=== PATIENT | female | born 1980 | race African-American/Black ===

== ENCOUNTER 2025-04-06 09:58 | Outpatient (AMB) | payer OTHER, SELFPAY ==
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
--- OUTSIDE RECORDS SUMMARY | 2025-04-06 10:26 | XMS_ITS | Data Portability ---
Author Organization [facility], Main Office Address [address] [facility] [address] [place] [address] Assessment No assessment recorded. Plan of Treatment Reminders Order Date Submit Date Provider Last Modified By Organization Details Last Modified Time Details Appointments None record ed. Lab None record ed. Referral None record ed. Procedures None record ed. Surgeries None record ed. Imaging None record ed. Medication Orders None record ed. Patient TargetsNo targets recorded. Patient InstructionsNo instructions recorded. Reason for Referral None Reported. Results Created Date Observation Date Name Description Value Unit Range Abnormal Flag Note LastModifiedBy Organization Detail LastModifiedTime 09/03/2001/13/2018 MRI, knee, w/o contr ast No observ ation record ed. [facility] [address] [facility] [address], [place], [id number], 09/04/2023 10:16:02 Result Notes None recorded. Medical Equipment None Reported. Vitals None Recorded Social History None recorded. Functional Status None recorded. Mental Status None recorded. Family History Nothing Reported. Medical History No medical history recorded. Gynecological HistoryNo gynecological history recorded. Obstetrics History GPAL:G 0 P 0 0 0 0 Past Encounters Encounter ID Performer Location Encounter Start Date Encounter Closed Date Diagnosis/Indication Diagnosis SNOMED-CT Code Diagnosis ICD10 Code Diagnosis Note [id number] Phyllis Lara MD [address],[facility] [address] [place] [phone] 09/03/2023 13:56:26 09/03/2023 15:02:34 Pain of bilateral knee joints [id number] 60714 M25.561 M25.562 [facility]Ur ine drug testing is ordered to assess compliance with prescribed medication s and identify common prescribed and non-prescr ibed substances that can impact medication efficacy and safety. Presumptiv e urine drug test including amphetamin es, barbiturat es, benzodiaze pines, cocaine, MDMA, methamphet amine, methadone, opiates, oxycodone, PCP and THC. Confirm by definitive testing all positive and negative results that are inconsiste nt with the prescribed medication s and all classes for which a presumptiv e test does not adequately identify low concentrat ions or the drugs within the class or their metabolite s specifical ly opiates, oxycodone, benzodiaze pines, amphetamin es, TCAs, methamphet amine, barbiturat es, BCG, 6-VAISHNAVI, methadone, and THC. Based on assessment , patient is at elevated risk due to dosage required to achieve pain control, medication combinatio ns, medical and/or psychiatri c comorbidit ies, and/or behaviors that may indicate aberrancy. Definitive urine drug test for gabapentin , pregabalin , SSRIs, Fentanyl, Tramadol, Zolpidem, muscle relaxants, buprenorph ine, tapentadol , meperidine , naloxone, and alcohol which are not detected by presumptiv e urine drug testing. These results are necessary for proper treatment of the patient. 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 [facility] Concerns Section Related Observation LastModified by Organization Detai ls LastModified Time None Recorded Concern Status LastModified by Organization Details LastModified Time None Recorded Advance Directives Directive None Recorded Payers Insurance Date Sequence Insurance Name Policy Number Policy Charles Covered Member ID Charles Member ID Guarantor Name 09/04/2023 1 [employer] (MEDICARE REPLACEMENT/ ADVANTAGE - HMO) [id number] Araceli Christopher [id number] Araceli Christopher 08/25/2023 1 [employer] (MEDICARE REPLACEMENT/ ADVANTAGE - PPO) [id number] Araceli Christopher [id number] Araceli Christopher Notes Date Note Type Note Provider Name and Address Organization Details Recorded Time 09/03/2023 text/html Appointment Date : September 03, 2023 This is a 43 year old Female with a history of pain, and swelling, numbness and tingling in the area of the knees. This pain began several years ago, and with no known cause, and they rate it at 8/10 on the Numerical Rating Scale today. The patient describes their pain as burning, aching, sharp and stabbing, it is worsened by lifting, walking, sitting, running and using the affected area, and alleviated by medications. In the past they have used medications which include we've tried everything but for the last maybe 8 yrs i've been on the same dose of meds. Previous related surgeries or procedures include bilateral release , screws put in , bone moved for better tracking, recent surgery 05/2023. Previous therapies include acupuncture, physical therapy and chiropractic therapy. The patient has done at least 6 weeks of physical therapy in the last 6 months including home exercise therapy. The patient denies allergies to IV Contrast or Shellfish. The patient denies a history of rapid weight loss for no reason. The patient reports a history of a broken bone or surgery in the area of pain. The patient denies that the area of pain is hot and swollen or cold and weak. The patient reports currently seeing, or having been seen in the past by a pain management doctor. In their own words, the patient reports that the name of their previous pain management doctor is: Dr engel, Dr ray. HX of chronic B knee pain, mainly on medial and lateral sides. Has undergone several surgeries on her R knee. Unclear what kind exactly, as well as genicular RFA. To date nothing has helped. She is on MS contin 15 mg tid and Percocet 15 mg qid ie MME around 135. She was previously seen by Dr. Ray and Dr. Engel. Was discharged from [facility] for arguing with desktop architect. Phyllis Lara MD [address] [facility],[address], [place], [address], - [facility] 09/03/2023 15:10:42 OBGyn Episode No OBEpisode recorded.
[2025-04-06 10:32] VITALS: BP 90/60; PULSE 76; RESP 12; TEMP 36.6; O2SAT 100; BMI 22.4
== END 2025-04-06 10:58 | disposition home or self-care (01) ==
LOC: HO.HMCFM 09:59
PROVIDERS: PCP Family Medicine; Visit Provider Family Medicine
DX: F41.9 Anxiety disorder, unspecified (principal); F32.A Depression, unspecified; F43.10 Post-traumatic stress disorder, unspecified; F31.9 Bipolar disorder, unspecified; Z86.39 Personal history of other endocrine, nutritional and metabolic disease; Z00.00 Encounter for general adult medical examination without abnormal findings; M25.569 Pain in unspecified knee; F42.9 Obsessive-compulsive disorder, unspecified

== ENCOUNTER → 2025-04-06 09:58 | Outpatient (BNVA) | payer OTHER, SELFPAY | PROVIDERS: PCP Family Medicine; Visit Provider Family Medicine | DX: Z00.00 Encounter for general adult medical examination without abnormal findings (principal); F41.9 Anxiety disorder, unspecified; F43.10 Post-traumatic stress disorder, unspecified; F31.9 Bipolar disorder, unspecified; F42.9 Obsessive-compulsive disorder, unspecified; Z86.39 Personal history of other endocrine, nutritional and metabolic disease | CPT/HCPCS: 96127 ==

== ENCOUNTER 2025-04-06 11:31 | Outpatient (REF) | payer MEDICARE, SELFPAY ==
[2025-04-06 14:38] LABS: Appearance Urine Clear; Glucose Urine UA Negative (Negative); PH 5.5 (5.0-9.0); Specific Gravity - Urine >= 1.030 (1.005-1.025); UMIC TRIGGER UACC YES
[2025-04-06 14:48] LABS: Cannabinoid Screen Urine POSITIVE (Not Detect)
[2025-04-06 14:50] LABS: MANUAL DIFF FLAG NO
[2025-04-06 15:02] LABS: Hematocrit 39.9 % (37.0-47.0); Hemoglobin 12.7 g/dl (12.0-16.0); Imm Gran Abs Auto 0.02 X10*3/uL (0.00-0.03); Imm Gran Pct Auto 0.3 % (0.0-0.4); Lymphocytes Absolute Auto 1.8 X10*3/uL (1.2-4.9); Mean Corpuscular HGB Conc 31.8 g/dl (31.0-35.0); Mean Corpuscular Hemoglobin 29.3 pg (27.0-33.0); Mean Corpuscular Volume 91.9 fL (80.0-98.0); NRBC Abs Auto 0.000 X10*3/uL (0.0-0.012); NRBC Pct Auto 0.0 /100WBC (0.0-0.2); Platelet Count 226 X10*3/uL (160-400); Red Blood Count 4.34 X10*6/uL (4.20-5.50); White Blood Count 7.4 X10*3/uL (4.8-10.8)
[2025-04-06 15:04] LABS: Hemoglobin A1C 107.4191 umol/L; Total Hemoglobin (HGBA1C) 3344.8279 umol/L
[2025-04-06 15:23] LABS: Alanine Aminotransferase 11 U/L (0-31); Albumin Level 4.3 g/dL (3.5-5.0); Alkaline Phosphatase 50 U/L (39-117); Anion Gap 13 (12-20); Aspartate Amino Transferase 16 U/L (5-31); Blood Urea Nitrogen 13 mg/dL (9-16); Calcium 8.9 mg/dL (8.4-10.2); Carbon Dioxide 27 mmol/L (22-29); Chloride 107 mmol/L (96-108); Cholesterol 185 mg/dL (<200); Estimated Glomerular Filt Rate > 60; HDL Cholesterol 56 mg/dL (>40); Potassium 3.5 mmol/L (3.3-5.1); Sodium 143 mmol/L (135-145); Total Protein 6.7 g/dL (6.5-8.0); Triglycerides 69 mg/dL (<150)
[2025-04-06 15:32] LABS: Microalbum/Creatinine Ratio Ur 4.4 ug/mg cr (<30)
[2025-04-06 15:43] LABS: Folate 6.5 ng/mL (> or = 4.0); Vitamin B12 307 pg/mL (200-900)
== END 2025-04-06 11:32 | disposition home or self-care (01) ==
LOC: HO.WFDLDS 11:31
PROVIDERS: Visit Provider Family Medicine
DX: I10 Essential (primary) hypertension (principal); Z00.00 Encounter for general adult medical examination without abnormal findings; F31.9 Bipolar disorder, unspecified; R73.01 Impaired fasting glucose; M25.569 Pain in unspecified knee; E53.8 Deficiency of other specified B group vitamins; E55.9 Vitamin D deficiency, unspecified
CPT/HCPCS: 80053; 80061; 80307; 81001; 82043; 82306; 82570; 82607; 82746; 83036; 84443; 85025

== ENCOUNTER 2025-05-13 13:40 | Outpatient (AMB) | payer OTHER, SELFPAY ==
--- OUTSIDE RECORDS SUMMARY | 2020-02-16 11:35 | XMS_ITS | Continuity of Care Document ---
Author Organization [facility] Address [address] [facility] [address] [facility], [address] [place] [address] Phone Care Team Providers Care Spud Sorter Name Role Phone Dhruv Meehan MD Unavailable Unavailable Allergies, Adverse Reactions, Alerts Substance Reaction Status Criticality No Known Allergies Active No Inform ation No Known Drug Allergies (unknown) Active No I nformation Medications Medication Instructions Dosage Effective Dates (start - stop) Status Comments Macrobid 100 mg capsule take 1 capsule by oral route every 12 hours with food 100 MG - Active Diflucan 150 mg tablet TAKE ONE ON DAY 5 OF AMPICILLIN RX AND THEN REPEAT IN 72 HRS IF SXS PERSIST - Active clindamycin HCl 300 mg capsule take one twice a day x 7 days - Active Cleocin 2 % vaginal cream insert 1 applicatorful by vaginal route every day at bedtime 100 MG - Active ampicillin 500 mg capsule TAKE ONE 3 TIMES A DAY FOR 7 SEVEN - Active Valtrex 500 mg tablet take 1 tablet by o ral route every day 500 MG - Active Cleocin 100 mg vaginal suppository insert 1 suppository by vaginal route every day for 3 days at bedtime 100 MG - Active nystatin 100,000 unit/gram topical cream apply by topical route 2 times every day to the affected area(s) 0.00 - Active triamcinolone acetonide 0.1 % topical cream apply by topical route 2 times every day a thin layer to the affected area(s) 0.00 - Active nystatin-triamcinolone 100,000 unit/g-0.1 % topical cream apply by topical route 2 times every day to the affected area(s) in the morning and evening 0.00 - Active tolterodine ER 4 mg capsule,extended release 24 hr take 1 capsule by oral route every day 4 MG - Active Mirena 20 mcg/24 hr (5 years) intrauterine device place 1 IUD by VAGINAL route every N/A 1 IUD - Active Procedures Procedure Date Ultrasound Pelvis Complete OFFICE/OUTPATIENT VISIT, EST OFFICE/OUTPATIENT VISIT, EST OFFICE/OUTPATIENT VISIT, EST OFFICE/OUTPATIENT VISIT, EST OFFICE/OUTPATIENT VISIT, EST OFFICE/OUTPATIENT VISIT, EST PREV VISIT, EST, AGE 18-39 Advance Directives Directive Yes / No Effective Date File Name No Information Encounters Encounter Description Practice Location Reason(s) For Visit Diagnoses Date Provider [facility], [facility] [address], [address] [place], [id number], [place] tel:[phone] [facility] No Information 0 Zoran Bartlett. [address] [place] [address], Adan Barba MD, [id number] , [place]. tel: [phone] [facility], [facility] [address], [address] [place], [id number], [place] tel:[phone] 64 [facility] No Information 0 Zoran Bartlett. [address] [place], [place] [address]Mark [place], [place], [id number] , [place]. tel: [phone] [facility], [address], [address] [place], [id number], [place] tel:[phone] 64 [facility] No Information 0 Zoran Bartlett. [address] [place] [address], Adan Barba MD, [id number] , [place]. tel: [phone] [facility], [address], [address], [place], [id number], [place] tel:[phone] 64 [place] No Information 9 Meehan Dhruv. [address] [place] [address], [address], Adan Davalos MD, [id number] , [place]. tel: [phone] OFFICE/OUTPAT IENT VISIT, EST [facility], [address], [address], [place], [id number], [place] tel:[phone] 64 [place] Partner feels IUD string (chief complaint)S potting (chief complaint) IUD check upIntermenstrual spotting due to intrauterine device (IUD), initial encounterOvulation bleeding 9 Zoran Bartlett. [address] [place] [address], [address], Adan Davalos MD, [id number] , [place]. tel: [phone] [facility], [address], [address], [place], [id number], [place] tel:[phone] 64 Adan Daval[place] No Information Eris Magdaleno. [address] [facility], [address], Adan Dav[place]os [place], [id number] , [place]. tel: [phone] [facility], [address], [address], [place], [id number], [place] tel:[phone] 64 Adan Daval[place] No Information 9 Eris Magdaleno. [address] [facility], [address], Adan Davalos MD, [id number] , [place]. tel: [phone] OFFICE/OUTPAT IENT VISIT, EST [facility], [address], [address], [place], [id number], [place] tel:[phone] 64 [place] vaginal irritation (chief complaint)* vaginal discharge (chief complaint) VaginitisEncntr for director child development center exam (general) (routine) w/o abn findings 9 Brianna Barakat. [address] [facility], [address], Adan Davalos MD, [id number] , [place]. tel: [phone] OFFICE/OUTPAT IENT VISIT, [facility], [address] [place], [address], [place], [id number], [place] tel:[phone] 64 [place] *vaginal discharge (chief complaint) Vaginitis 9 [place]. [address] [facility], [address], Adan Davalos MD, [id number] , [place]. tel: [phone] OFFICE/OUTPAT IENT VISIT, [facility], [address], [place], [id number], [place] tel:[phone] 64 Adan Davalos *UTI (chief complaint) Urinary urgencyVaginal discharge 8 [place]. [address] [place] [address], [address], Adan Davalos MD, [id number] , [place]. tel: [phone] OFFICE/OUTPAT IENT VISIT, [facility], [address], [address], [place], [id number], [place] tel:[phone] 64 Adan Davalos *UTI (chief complaint) Urinary urgency 8 [place]. [address] [facility], [address], Adan Davalos MD, [id number] , [place]. tel: [phone] OFFICE/OUTPAT IENT VISIT, [facility], [address], [address], [place], [id number], [place] tel:[phone] 64 Adan Davalos Pt. c/o white discharge (chief complaint) Vaginitis 8 Dottie Bull. [address] [place] [address], [address], Adan Davalos MD, [id number] , [place]. tel: [phone] PREV VISIT, [facility], AGE 18-39 [facility], [address], [address], [place], [id number], [place] tel:[phone] 64 Adan Davalos Annual Exam (chief complaint)* STI Screening (chief complaint)* vaginal discharge (chief complaint)v aginal odor (chief complaint) Encntr for director child development center exam (general) (routine) w/o abn findingsVaginitisEncounter for routine checking of intrauterine contraceptive device (IUD)Screening for STD (sexually transmitted disease) 7 [place]. [address] [facility], [address], Adan Davalos MD, [id number] , [place]. tel: [phone] [facility], [address], [address], [place], [id number], [place] tel:[phone] 64 [facility] No Information 7 [place]. [address] [facility], [address], Adan Davalos MD, [id number] , [place]. tel: [phone] [facility], [address], [address], [place], [id number], [place] tel:[phone] 64 [facility] No Information 1 Eris Magdaleno. [address] [facility], [address], Adan Davalos MD, [id number] , [place]. tel: [phone] Family History Family Member Type Diagnosis Age At Onset close relative Problem (finding) Diabetes mellitus close relative Problem (finding) hypertension Payers Payer name Insurance type Covered constitution party ID Authoriza tion(s) Medicare [place] MB [id number] Social History Type Description Quantity Date Captured Comments Sex Female Smoking Status No Information Chief Complaint And Reason For Visit No Information Plan Of Treatment Date Type Action Status Referral Ordered: Ultrasound Pelvis Complete ordered History Of Present Illness Encounter Date Complaint History Of Prese nt Illness Spotting Partner feels IUD string 39 yo F LMP 2016 with Mirena ...Partner c/o string 2 days ago....+ spotting... *vaginal discharge vaginal irritation Pt c/o vagina l d/c and irritation for past week.Pt denies vaginal bleedingPt recently treated with flagyl PO *vaginal discharge Onset: gradua l. Duration 4 Days. The patient describes it as creamy white discharge. It occurs continuously. Denies aggravating factors. Denies relieving factors. Associated symptoms include itching. Pertinent negatives include bleeding, burning, dyspareunia and vulvar dystrophy. Additional information: She notes a creamy white d/c, with slight odor and mild itch x 4 days. She has not tried anything for treatment yet. *UTI Onset: gradual. Severity level is moderate-severe. Duration: 1 Week. There is radiation to back and urgency. The patient describes it as frequency. It occurs constantly. The problem is with no change. Relieving factors include analgesics. Additional information: no history of interstitial cystitis, no history of irritable bowel, no history of pyelonephritis, no history of stones, history of UTIs, sexually active and LMP: 10/06/2015. *UTI Onset: gradual. Severity level is moderate. Duration: 1-3 months. The patient describes it as incontinence (urge) and urgency. It occurs intermittently. The problem is worse. Denies aggravating factors. Relieving factors include Azo otc. Additional information: no history of interstitial cystitis, no history of irritable bowel, no history of pyelonephritis, no history of stones, history of UTIs, sexually active, LMP: 10/06/2015, She has a hx of urge incontinence, she stopped her meds 1.5 mo ago as she thought stopping would help her lose wt. She then developed intermit. urgency and frequency and w/o dysuria. She self tx w/ otc.. Pt. c/o white discharge The symp toms began 2 days ago. The symptoms are reported as being mild. The location is vagina. Associated symptoms include odor. Pertinent negatives include itch. She states the symptoms are acute and have improved. She notes the discharge started 2-3 days ago, was worse, then improved. She notes a mild odor, but no itching. Annual Exam : 1. Wilda ty: : 1. Patient is not contemplating . The patient states she uses IUD, Mirena for control. Last LMP was 08/27/2017. Negative for dysmenorrhea and menorrhagia. Negative for: breast discharge, breast lump(s) and breast pain. Positive for: breast self exam. Pertinent negatives include abnormal vaginal bleeding, decreased libido, depression, dyspareunia, sexual dysfunction, urinary incontinence, urinary urgency, vaginal discharge and vaginal itching. She does not take calcium. She does not take Vitamin D. She does not take multivitamins.The patient states her exercise level is sedentary. She has not been exposed to passive smoke. She does not drink alcohol. Additional information: She complains of years of vaginal odor and slight discharge. She has tried probiotics with minimal relief. She requests STD testing.. *STI Screening *vaginal discharge vaginal odor Instructions Date Instruction Additional Infor mation We discussed urge in continence. She will try the generic Detrol LA. Related to Urinary urgency She will try Rephres h gel, while we await culture results. Related to Vaginitis We discussed trying Rephresh gel for the odor. Related to Vaginitis Assessments Type Assessment Date No Information
--- NOTE | 2025-05-13 13:43 | MHC.PC.OV ---
Vital Signs 05/13/25 13:46 Height 5 ft 8 in Weight 157 lb BMI 23.9 BP 115/64 Blood Pressure Location Lt brachial Position Sitting Respiration 12 Pulse 76 Pulse Source Pulse Oximeter Temp 97.3 F Temp Source Temporal Artery Scan Pulse Oximetry (%) 100 Oxygen Delivery Method Room Air Intake Visit Reasons: F/U medication / Labs Intake Note: Follow up to review labs. Patient also reuqesting referrals Prenatal Genetic Counselor Required: No Allergies methadone Allergy (Intermediate, Verified 05/13/25 13:44) Vomiting Medication List - Last Reconciled 05/13/25 by Juan Luis Marte MD alprazolam (Xanax) 1 mg PO ONCE PRN buspirone 15 mg PO TID cariprazine (Vraylar) 3 mg PO DAILY levonorgestrel (Mirena) intrauterine meloxicam 15 mg PO DAILY 30 days morphine 15 mg PO TID PRN oxycodone 15 mg PO QID PRN semaglutide (Ozempic) 0.25 mg (0.368 mL) subcut QWEEK 28 days sumatriptan succinate 50 mg PO Q2-4H PRN valacyclovir 1,000 mg PO DAILY Tobacco use date assessed: 05/13/25 Dental Screening Dental Screen Date: 05/13/25 Did you have a dental visit in the last 12 months?: Yes Did you have a dental problem in the last 6 months where you did not have access to dental care?: No Was dental information given to patient?: Patient has dentist HPI F/U medication / Labs HPI Details 45 y/o female presents for a CPE with f/u labs and health maint. Labs drawn 04/06/25. Reviewed labs with pt. Triglcyerides 69. TC 185. LDL 116. HDL 56. Vitamin D 38.1 ng/mL. Hx of chroinc knee pain. Had sent script for meloxicam and referred her to pain management. Has been using ice/heat as well for relief. She notes it has been awhile since her last physical therapy session. [facility] Medical History (Updated 05/13/25 @ 14:16 by Duarte Lorenz) PTSD (post-traumatic stress disorder) OCD (obsessive compulsive disorder) Bipolar 1 disorder Anxiety and depression Herpes genitalis in women Edema Arthritis Surgical History (Updated 04/06/25 @ 10:29 by UZMA Robbins) H/O right knee surgery Cholecystotomy with removal of foreign body from gallbladder performed Family History (Updated 04/06/25 @ 10:28 by UZMA Robbins) Brother Asthma Father High blood pressure High cholesterol Diabetes Mother Diabetes Psychiatric disorder Social History Housing: Apartment Patient Tobacco Use Status: Never used Tobacco e-Cigarette/Vaping Use: Never Used Second Hand Smoke Exposure: No Current occupational status: employed Cognitive needs: No Hearing needs: No Vision needs: No Questionnaire Thrive Questionnaire Date Thrive assessed: 04/06/25 I am a: Patient What is your living situation today?: I have a steady place to live Within the past 12 months, did the food you bought not last and you didn't have the money to get more?: Sometimes True Within the past 12 months, did you worry whether your food would run out before you got money to buy more?: Sometimes True Do you have trouble paying for medicines?: No Do you have trouble getting transportation to medical appointments?: No Do you have trouble paying your heating and electricity bill?: No Do you have trouble taking care of your child, family member or friend?: No Do you have trouble with day-to-day activities such as bathing, preparing meals, shopping, managing finances, etc.?: Yes Are you currently unemployed and looking for a job?: I choose not to answer this question Are you interested in more education?: No THRIVE Score: 2 AUDIT C Alcohol Use Questionnaire (AUDIT-C) 3. How often do you have six or more drinks on one occasion?: Never Total Score: 0 AGUSTIN-7 AMB Questionnaire AGUSTIN-7 Date AGUSTIN - 7 assessed: 04/06/25 Source: Developed by Drs. Nico Nichols, Jewels Chaparro, Gibran Poon and colleagues, with an educational subha from [employer]. Review of Systems Const Denies chills, Denies fatigue, Denies fever(s), Denies headache(s) and Denies weakness Eyes Denies change in vision ENT Denies dizziness and Denies headache(s) Card Denies dyspnea Resp Denies cough, Denies dyspnea, Denies wheezing and Denies other (shortness of breath) GI Denies abdominal pain, Denies melena, Denies hematochezia, Denies change in bowel habits, Denies dyspepsia and Denies nausea Denies hematuria and Denies dysuria Musc Denies numbness and Denies tingling Skin/Breast Denies rash, Denies unusual bruising and Denies wounds Neuro Denies dizziness, Denies headache(s), Denies numbness, Denies Sensory deficit (Neuro), Denies tingling and Denies weakness Psych Denies anxiety and Denies depression Endo Denies fatigue Ronald/Lymph Denies easy bleeding and Denies easy bruising Aller/Immun Denies wheezing Physical exam (Primary Care) Vital Signs: Last Vital Signs Temp 97.3 F 05/13/25 13:46 Pulse 76 05/13/25 13:46 Resp 12 05/13/25 13:46 BP 115/64 05/13/25 13:46 Pulse Ox 100 05/13/25 13:46 Oxygen Delivery Method Room Air 05/13/25 13:46 BMI result Body Mass Index 23.9 Tobacco/Smoking Status: Tobacco use Status Tobacco use date assessed 05/13/25 05/13/25 13:45 Patient Tobacco Use Status Never used Tobacco 05/13/25 13:45 e-Cigarette/Vaping Use Never Used 05/13/25 13:45 Thrive Assessment: Date of Thrive Assessment Date Thrive assessed 04/06/25 05/13/25 13:45 Const General: well developed; No acute distress Nutritional Appearance: well nourished Orientation/consciousness: patient oriented x3 HENMT Head: Yes normocephalic and Yes atraumatic Ears: hearing grossly normal bilaterally and TM's normal bilaterally General nose exam: Normal external nose present and Normal nares present Mouth: Normal oral and palatal mucosa present and moist mucous membranes Teeth and gingiva: dentition normal Throat: Yes posterior oropharynx normal Eyes General: appearance normal, both eyes and all related structures Pupils: Equal, round and reactive pupils present EOM: EOMs intact bilaterally Neck Neck: Yes normal visual inspection, Yes no lymphadenopathy and Yes trachea midline Thyroid: Thyroid normal Carotids: no bruits Lymphatic: no lymphadenopathy noted Chest Chest palpation & inspection: normal inspection of the chest Resp Effort & Inspection: normal respiratory effort Auscultation: clear to auscultation bilaterally Cardio Rate: regular rate Rhythm: regular rhythm Heart sounds: S1 normal heart sound present, S2 normal heart sound present, no gallops, no murmurs and no rubs Bruits: no abdominal aortic bruits and no carotid bruits GI Palpation (GI): No Abdominal aortic bruit present, Soft to palpation, nontender, No hepatosplenomegaly present and No Rebound tenderness present Auscultation: normal bowel sounds General: Yes no CVA tenderness Back/Spine/Pelvis Back: no CVA tenderness Cervical Spine: cervical ROM normal and No Cervical spine tenderness Thoracic/Lumbar Spine: thoraco-lumbar ROM normal, No pain with thoraco-lumbar ROM, No thoracic spinal tenderness and No lumbar spinal tenderness Skin Lesions: no lesions Rashes: no rashes Trauma: no lacerations or abrasions Wounds: no wounds Nails: normal Neuro General: patient oriented x3 and gait normal Cranial nerves: Yes Equal, round and reactive pupils present Cognition (Neuro): normal cognition Gait exam (Neuro): Normal gait present Motor exam (neuro): 5/5 motor strength present throughout Sensory Exam: No Sensory deficit (Neuro) Deep tendon reflexes (DTR's): Right patellar reflex intensity grade: 2+ and Left patellar reflex intensity grade: 2+ Extrem General: Yes normal to inspection and No edema Psych Appearance: grossly normal Affect: normal affect Attitude: cooperative Thought process: Normal thought process present Coding Level of Care Code Est Pt Level 3 (20635) Est Pt Prev Care 40-64y(22767) Diagnoses Knee pain M25.569 Elevated LDL cholesterol level E78.00 Adult general medical exam Z00.00 Screening for cervical cancer Z12.4 Assessment & Plan Assessment & Plan (1) Knee pain: Code(s): M25.569 - Pain in unspecified knee Category: Medical Plan: Ortho Dr Wilson Banerjee MA - will requests surgical notes. So far notes that I received from her last primary were essentially a long list of medications. Does note large doses of oxycodone and morphine. Also included a single diagnosis of Ethesopathy of the knee, without any medical reasoning or workup described. Generally treatment for ethesopathy of the knee is NSAIDs, physical therapy, ice and heat. Per pt, she has had surgery on her right knee by an revenue specialist named Dr. Wilson, apparently from [facility] in though he has retired. Will try to get notes from the orthopedic group. Currently using meloxicam. Her last prescription for oxycodone was in February - over 2.5 mos ago. She notes discomfort but does not appear to be in any significant distress or severe pain. At this point, we will try to get more information but may need to start her workup from scratch. I am ordered x-rays of her knees Will start physical therapy I am referring to pain management She should continue meloxicam and I will and a topical Continue ice and heat Will follow-up in a month We did get the urine drug screen at her last visit which showed oxycodone as expected. Also THC which she had mentioned No other unexpected substances. (2) Elevated LDL cholesterol level: Code(s): E78.00 - Pure hypercholesterolemia, unspecified Category: Medical Plan: Cholesterol mildly elevated Encouraged a diet lower in saturated fats and cholesterol (3) Adult general medical exam: Code(s): Z00.00 - Encounter for general adult medical examination without abnormal findings Category: Medical Plan: 45-year-old female presents for an extended exam (4) Screening for cervical cancer: Code(s): Z12.4 - Encounter for screening for malignant neoplasm of cervix Category: Medical Plan: Referred to product builder Orders: Orders XR knee RT 3V Today M25.569 - Pain in unspecified knee XR knee LT 3V Today M25.569 - Pain in unspecified knee PT Evaluation and Treatment Today M25.569 - Pain in unspecified knee Referrals Pain Management Referral M25.569 - Pain in unspecified knee CONTINUOUS MINER OPERATOR Referral Z12.4 - Encounter for screening for malignant neoplasm of cervix Medications: Changed From sumatriptan succinate do not exceed 4 doses per 24 hrs 50 mg PO Q2-4H PRN To sumatriptan succinate do not exceed 4 doses per 24 hrs 50 mg PO Q2-4H PRN 14 tabs 3RF migraine headache 30 days
[2025-05-13 13:46] VITALS: BP 115/64; PULSE 76; RESP 12; TEMP 36.3; O2SAT 100; BMI 23.9
--- OUTSIDE RECORDS SUMMARY | 2025-05-13 13:46 | XMS_ITS ---
Author Name [facility] Organization Unknown Encounters Encounter Type Encounter Reason Primary Diagnosis Location Date Ambulatory [facility] 02/04/2025 Ambulatory [facility] 02/03/2025 Ambulatory [facility] 01/24/2025 Ambulatory [facility] 01/10/2025 Ambulatory [facility] 01/06/2025 Ambulatory [facility] 02/24/2024 Ambulatory [facility] 02[facility]09/2024 Ambulatory [facility] 12[facility]16/2023 Ambulatory [facility] 11/19/2023 Ambulatory [facility] 09/02/2023 Ambulatory [facility] 07/23/2023 Ambulatory [facility] 11/01/2022 Ambulatory [facility] 09[facility]12/2022 Ambulatory [facility] 09/09/2022 Ambulatory [facility] 09/06/2022 Ambulatory [facility] 08/15/2022 Ambulatory [facility] 08/15/2022 Care Team Organization Name Specialty Phone Email Start Date End Da janae Logan MD, [facility] 024 01/13/2024 [facility] 09/04/2023 05/24/2024 [facility]
== END 2025-05-13 14:24 | disposition home or self-care (01) ==
LOC: HO.HMCFM 13:40
PROVIDERS: PCP Family Medicine; Visit Provider Family Medicine
DX: Z00.00 Encounter for general adult medical examination without abnormal findings (principal); M25.561 Pain in right knee; E78.00 Pure hypercholesterolemia, unspecified; M25.562 Pain in left knee

== ENCOUNTER 2025-05-27 13:48 | Outpatient (REF) | payer MEDICARE, SELFPAY ==
--- NOTE | ~2025-05-27 | XR_ITS ---
Exam: X-ray, bilateral knees.XR KNEE 3 VIEWS BILATERAL TECHNIQUE: Three views lower extremity joint, bilateral knees INDICATION: M25.569 - Pain in unspecified knee COMPARISON: None available. FINDINGS: RIGHT KNEE: There is mild narrowing of the lateral joint space. There are tricompartmental marginal osteophytes. There is a joint effusion. There is faint calcification visible in the lateral meniscus. There is mild medial subluxation of femur. There are tracks from removed screws region of the tibial tubercle. LEFT KNEE: There is mild narrowing of the lateral joint space. There are tricompartmental marginal osteophytes. There is a joint effusion. There is faint amorphous calcification visible in the lateral and medial menisci and patellar cartilage. There is mild medial subluxation of femur. 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 Electronically signed by: Cristhian Rojas MD 05/27/2025 02:33 PM EDT
== END 2025-05-27 13:49 | disposition home or self-care (01) ==
LOC: HO.XRAY 13:48
PROVIDERS: PCP Family Medicine; Visit Provider Family Medicine
DX: M25.561 Pain in right knee (principal); M25.562 Pain in left knee
CPT/HCPCS: 73562

== ENCOUNTER → 2025-05-27 13:51 | Outpatient (BNV) | payer MEDICARE, SELFPAY | PROVIDERS: PCP Family Medicine; Visit Provider Radiology Diagnostic Radiology | DX: M25.561 Pain in right knee (principal); M25.562 Pain in left knee | CPT/HCPCS: 73562 ==

== ENCOUNTER 2025-06-14 14:55 | Outpatient (AMB) | payer MEDICARE, SELFPAY ==
--- OUTSIDE RECORDS SUMMARY | 2020-02-16 11:35 | XMS_ITS | Continuity of Care Document ---
Author Organization [facility] Address [address] [facility] [address] [facility], [address] [place] [address] Phone Care Team Providers Care Hole Puncher Strap Name Role Phone Dhruv Meehan MD Unavailable Unavailable Allergies, Adverse Reactions, Alerts Substance Reaction Status Criticality No Known Allergies Active No Inform ation No Known Drug Allergies (unknown) Active No I nformation Medications Medication Instructions Dosage Effective Dates (start - stop) Status Comments Macrobid 100 mg capsule take 1 capsule by oral route every 12 hours with food 100 MG - Active clindamycin HCl 300 mg capsule take one twice a day x 7 days - Active Diflucan 150 mg tablet TAKE ONE ON DAY 5 OF AMPICILLIN RX AND THEN REPEAT IN 72 HRS IF SXS PERSIST - Active Cleocin 2 % vaginal cream [...] days at bedtime 100 MG - Active nystatin-triamcinolone 100,000 unit/g-0.1 % topical cream apply by topical route 2 times every day to the affected area(s) in the morning and evening 0.00 - Active nystatin 100,000 unit/gram topical cream apply by topical route 2 times every day to the affected area(s) 0.00 - Active triamcinolone acetonide 0.1 % topical cream apply by topical route 2 times every day a thin layer to the affected area(s) 0.00 - Active tolterodine ER 4 mg [...] Location Reason(s) For Visit Diagnoses Date Provider [facility], [facility] [address], [address] [place], [id number], [place] tel:[phone] [employer] No Information 0 Zoran Bartlett. [address] [place] [address], Adan Barba [place], [id number] , [place]. tel: [phone] [facility], [facility] [address], [address] [place], [id number], [place] tel:[phone] 64 [employer] No Information 0 Zoran Bartlett. [address] [place], [place] [address], [id number] , [place]. tel: [phone] [facility], [address], [address] [place], [id number], [place] tel:[phone] 64 [employer] No Information 0 Zoran Bartlett. [address] [place], [place] [address], [id number] , [place]. tel: [phone] [facility], [address], [address], [place], [id number], [place] tel:[phone] 64 [place] No Information 9 Meehan Dhruv. [address] [place] [address], [address], Adan Davalos MD, [id number] , [place]. tel: [phone] OFFICE/OUTPAT IENT VISIT, EST [facility], [address], [address], [place], [id number], [place] tel:[phone] 64 [place] Partner feels IUD string (chief complaint)S potting (chief complaint) IUD check upIntermenstrual spotting due to intrauterine device (IUD), initial encounterOvulation bleeding 9 Zoran Bartlett. [address] [place] [address], [address], Adan Davalos MD, [id number] , [place]. tel: [phone] [facility], [address], [address], [place], [id number], [place] tel:[phone] 64 Adan Davalos No Information Eris Magdaleno. [address] [facility], [address], Adan [place]os [place], [id number] , [place]. tel: [phone] [facility], [address], [address], [place], [id number], [place] tel:[phone] 64 Adan Davalos No Information 9 Eris Magdaleno. [address] [facility], [address], Adan Davalos [place], [id number] , [place]. tel: [phone] OFFICE/OUTPAT IENT VISIT, EST [facility], [address], [address], [place], [id number], [place] tel:[phone] [place] vaginal irritation (chief complaint)* vaginal discharge (chief complaint) VaginitisEncntr for product marketing director exam (general) (routine) w/o abn findings 9 Brianna Barakat. [address] [facility], [address], Adan Davalos [place], [id number] , [place]. tel: [phone] OFFICE/OUTPAT IENT VISIT, [facility], [address], [address], [place], [id number], [place] tel:[phone] [place] *vaginal discharge (chief complaint) Vaginitis 9 [place]. [address] [facility], [address], Adan Davalos [place], [id number] , [place]. tel: [phone] OFFICE/OUTPAT IENT VISIT, [facility], [address], [place], [id number], [place] tel:[phone] 64 Adan Davalos *UTI (chief complaint) Urinary urgencyVaginal discharge 8 [place]. [address] [place] [address], [address], Adan Davalos [place], [id number] , [place]. tel: [phone] OFFICE/OUTPAT IENT VISIT, [facility], [address], [address], [place], [id number], [place] tel:[phone] 64 Adan Davalos *UTI (chief complaint) Urinary urgency 8 [place]. [address] [facility], [address], Adan Davalos MD, [id number] , [place]. tel: [phone] OFFICE/OUTPAT IENT VISIT, [facility], [address], [address], [place], [id number], [place] tel:[phone] Adan Davalos Pt. c/o white discharge (chief complaint) Vaginitis 8 Dottie Bull. [address] [place] [address], [address], Adan Davalos [place], [id number] , [place]. tel: [phone] PREV VISIT, [facility], AGE 18-40 [facility], [address], [address], [place], [id number], [place] tel:[phone] 64 Adan Davalos Annual Exam (chief complaint)* STI Screening (chief complaint)* vaginal discharge (chief complaint)v aginal odor (chief complaint) Encntr for product marketing director exam (general) (routine) w/o abn findingsVaginitisEncounter for routine checking of intrauterine contraceptive device (IUD)Screening for STD (sexually transmitted disease) 7 [place]. [address] [facility], [address], Adan Davalos [place], [id number] , [place]. tel: [phone] [facility], [address], [address], [place], [id number], [place] tel:[phone] 64 [facility] [employer] No Information 7 [place]. [address] [facility], [address], Adan Davalos MD, [id number] , [place]. tel: [phone] [facility], [address], [address], [place], [id number], [place] tel:[phone] 64 [facility] [employer] No Information 1 Eris Magdaleno. [address] [facility], [address], Adan Davalos [place], [id number] , [place]. tel: [phone] Family History Family Member Type Diagnosis Age At Onset close relative Problem (finding) Diabetes mellitus close relative Problem (finding) hypertension Payers Payer name Insurance type Covered green party ID Authoriza tion(s) Medicare DC MB [id number] Social History Type Description Quantity Date Captured Comments Sex Female Smoking Status No Information Chief Complaint And Reason For Visit No Information Plan Of Treatment Date Type Action Status Referral Ordered: Ultrasound Pelvis Complete ordered History Of Present Illness Encounter Date Complaint History Of Prese nt Illness Partner feels IUD string 39 yo F LMP 2016 with Mirena ...Partner c/o string 2 days ago....+ spotting... Spotting vaginal irritation Pt c/o vagina l d/c and irritation for past week.Pt denies vaginal bleedingPt recently treated with flagyl PO *vaginal discharge *vaginal discharge Onset: gradua l. Duration 4 [...]
--- NOTE | 2025-06-14 15:05 | A.OFFVIS_ITS ---
Vital Signs 06/14/25 15:11 Height 5 ft 8 in Weight 156 lb BMI 23.7 BP 114/68 Blood Pressure Location Rt brachial Position Sitting Pulse 86 Pulse Source Pulse Oximeter Pulse Oximetry (%) 97 Oxygen Delivery Method Room Air Intake Visit Reasons: Pain in unspecified knee Intake Note: Pain today 04/14 Shipping And Receiving Material Handler Required: No Accompanied by: Self / Same As Patient Allergies methadone Allergy (Intermediate, Verified 06/14/25 15:10) Vomiting HPI Comments Details: The patient is a 45-year-old female presenting with chronic knee pain. The knee pain began in 1998, characterized by dislocation and has been persistent since then. The pain is described as constant, pulsing, throbbing, pounding, stabbing, sore, hurting, aching, and heavy, significantly affecting her daily activities such as walking and climbing stairs. The patient has undergone multiple interventions, including six or seven surgeries on the right knee, with procedures such as nerve burning, screw insertion and removal, and bone spur cleaning. The most recent surgery was in July 2023, where painful hardware was removed. Despite these interventions, the pain persists, exacerbated by weather changes and movements. The patient has tried various pain management strategies, including medications like morphine, oxycodone, and meloxicam, with limited relief. She has also attempted non-pharmacological treatments such as physical therapy, massage, acup uncture, and TENS unit, without significant improvement. The patient reports using marijuana daily for pain management, obtained from a dispensary. The patient has a history of mild osteoarthritis secondary to CPPD arthropathy in both knees, confirmed by recent x-rays. She has not established care with an Orthopedic doctor since moving to the area. Patient is currently in physical therapy with minimal improvement. - Onset: Began in 1998 with knee dislocation. - Quality: Constant, pulsing, throbbing, pounding, stabbing, sore, hurting, aching, heavy. - Location: Both knees, with the right knee being worse than the left. - Exacerbating factors: Weather changes, movements, walking, climbing stairs. - Relieving factors: Limited relief from medications such as morphine, oxycodone, and meloxicam. - Interference: Affects walking and climbing stairs. - Affect: Pain impacts daily activities and causes fatigue. - Analgesia: Current medications include morphine, oxycodone, and meloxicam, with pain levels reported as 8-9/10. - Adverse Effects: No specific adverse effects from medications were discussed. - Activities of Daily Living: Pain interferes with walking and climbing stairs. - Aberrant Drug Related Behaviors: The patient uses marijuana daily for pain management. [facility] Medical History PTSD (post-traumatic stress disorder) OCD (obsessive compulsive disorder) Bipolar 1 disorder Anxiety and depression Herpes genitalis in women Edema Arthritis Surgical History H/O right knee surgery Cholecystotomy with removal of foreign body from gallbladder performed Family History Brother Asthma Father High blood pressure High cholesterol Diabetes Mother Diabetes Psychiatric disorder Social History (Updated 06/14/25 @ 15:14 by Marlene Gross) Housing: Apartment Patient Tobacco Use Status: Never used Tobacco e-Cigarette/Vaping Use: Never Used Second Hand Smoke Exposure: No Substance Use Type: Marijuana Substance Use Frequency: Daily Current occupational status: employed Cognitive needs: No Hearing needs: No Vision needs: No Review of Systems Const Details: - Musculoskeletal: Reports chronic knee pain, worse on the right side. - General: Denies use of cane or walker despite knee pain. All systems reviewed & are unremarkable except as noted in HPI and below Physical Exam Vital Signs: Last Vital Signs Pulse 86 06/14/25 15:11 BP 114/68 06/14/25 15:11 Pulse Ox 97 06/14/25 15:11 Oxygen Delivery Method Room Air 06/14/25 15:11 BMI result Body Mass Index 23.7 General: Appears afebrile. Alert and oriented. Mood and affect appropriate. Follows and participates in conversation appropriately. Respiratory effort is unlabored. No cough. Able to transition from sit to stand unassisted. Ambulates with bilaterally normal heel strike and toe off. Extrem Right lower extremity: knee (Limited ROM due to pain. Well healed incisions) Details: tenderness Location: of the patella, of the medial joint line and of the lateral joint line and crepitus; no swelling, no ecchymosis and no unusual warmth Left lower extremity: knee (Limited ROM due to pain) Details: normal to inspection, tenderness Location: of the medial joint line and of the lateral joint line and crepitus; no swelling, no ecchymosis and no unusual warmth Results Reviewed Results Reviewed: XR Knee Ish 3V 05/27/25 TECHNIQUE: Three views lower extremity joint, bilateral knees INDICATION: M25.569 - Pain in unspecified knee COMPARISON: None available. FINDINGS: RIGHT KNEE: There is mild narrowing of the lateral joint space. There are tricompartmental marginal osteophytes. There is a joint effusion. There is faint calcification visible in the lateral meniscus. There is mild medial subluxation of femur. There are tracks from removed screws region of the tibial tubercle. LEFT KNEE: There is mild narrowing of the lateral joint space. There are tricompartmental marginal osteophytes. There is a joint effusion. There is faint amorphous calcification visible in the lateral and medial menisci and patellar cartilage. There is mild medial subluxation of femur. 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 Assessment & Plan Assessment & Plan (1) Bilateral knee pain: Code(s): M25.561 - Pain in right knee; M25.562 - Pain in left knee Category: Medical (2) Osteoarthritis of knees, bilateral: Code(s): M17.0 - Bilateral primary osteoarthritis of knee Category: Medical (3) Calcium pyrophosphate deposition disease of knee: Code(s): M11.869 - Other specified crystal arthropathies, unspecified knee Category: Medical Plan The plan includes scheduling bilateral knee Synvisc One gel injections for the management of osteoarthritis, with ultrasound guidance. If the gel injections do not provide adequate relief, an Orthopedic referral will be made to establish care and explore further treatment options. We also discussed interventional treatments, diagnostic nerve blocks for potential genicular RFA and Sprint PNS trial. Information pamphlets were provided to patient. Patient is interested to discuss the possibility of continuing opioid medications, specifically oxycodone, for pain management. I have informed patient that I do not offer chronic opioid program and this has been deferred to her PCP. All questions and concerns have been answered and patient agreed with the treatment plan. Follow up after injections and sooner as needed. Patient was informed and verbally consented to the use of an ambient scribe for clinic note documentation during this visit. Orders: Referrals Orthopedics Referral M11.869 - Other specified crystal arthropathies, unspecified knee, M17.0 - Bilateral primary osteoarthritis of knee, M25.561 - Pain in right knee, M25.562 - Pain in left knee Coding Level of Care Code New Pt Level 4 (67263) Diagnoses Bilateral knee pain M25.561; M25.562 Osteoarthritis of knees, bilateral M17.0 Calcium pyrophosphate deposition disease of knee M11.869
[2025-06-14 15:11] VITALS: BP 114/68; PULSE 86; O2SAT 97; BMI 23.7
== END 2025-06-14 15:31 | disposition home or self-care (01) ==
LOC: HO.PMC 14:55
PROVIDERS: PCP Family Medicine; Visit Provider Nurse Practitioner Family
DX: M25.561 Pain in right knee (principal); M25.562 Pain in left knee; M17.0 Bilateral primary osteoarthritis of knee; M11.869 Other specified crystal arthropathies, unspecified knee
CPT/HCPCS: 99204

== ENCOUNTER → 2025-06-14 14:55 | Outpatient (BNVA) | payer MEDICARE, SELFPAY | PROVIDERS: PCP Family Medicine; Visit Provider Nurse Practitioner Family | DX: M25.561 Pain in right knee (principal); M25.562 Pain in left knee; M17.0 Bilateral primary osteoarthritis of knee; M11.869 Other specified crystal arthropathies, unspecified knee | CPT/HCPCS: 99202 ==

== ENCOUNTER 2025-06-23 14:32 | Outpatient (REF) | payer MEDICARE, SELFPAY ==
[2025-06-23 17:58] LABS: Cannabinoid Screen Urine POSITIVE (Not Detect)
== END 2025-06-23 14:33 | disposition home or self-care (01) ==
LOC: HO.LAB 14:32
PROVIDERS: PCP Family Medicine; Visit Provider Family Medicine
DX: Z23 Encounter for immunization (principal); M25.561 Pain in right knee; M25.562 Pain in left knee; G89.29 Other chronic pain; Z71.85 Encounter for immunization safety counseling
CPT/HCPCS: 80307; 90471; 90656

== ENCOUNTER 2025-06-23 14:32 | Outpatient (AMB) | payer OTHER, SELFPAY ==
--- NOTE | 2025-06-23 14:52 | A.OFFPC_ITS ---
Vital Signs 06/23/25 14:56 Height 5 ft 8 in Weight 164 lb 4 oz BMI 25.0 BP 108/58 L Blood Pressure Location Lt brachial Position Sitting Respiration 15 Pulse 70 Pulse Source Pulse Oximeter Temp 98.2 F Temp Source Temporal Artery Scan Pulse Oximetry (%) 100 Oxygen Delivery Method Room Air Intake Visit Reasons: f/u knee pain Intake Note: Araceli presents in the office for bilateral knee pain Allergies methadone Allergy (Intermediate, Verified 06/23/25 14:54) Vomiting Medication List - Last Reconciled 06/23/25 by Juan Luis Marte MD alprazolam (Xanax) 1 mg PO ONCE PRN buspirone 15 mg PO TID cariprazine (Vraylar) 3 mg PO DAILY levonorgestrel (Mirena) intrauterine meloxicam 15 mg PO DAILY 30 days morphine 15 mg PO TID PRN oxycodone 15 mg PO QID PRN semaglutide (Ozempic) 0.5 mg (0.736 mL) subcut QWEEK 28 days sumatriptan succinate 50 mg PO Q2-4H PRN 30 days valacyclovir 1,000 mg PO DAILY Tobacco use date assessed: 06/23/25 Dental Screening Dental Screen Date: 06/23/25 Did you have a dental visit in the last 12 months?: Yes Did you have a dental problem in the last 6 months where you did not have access to dental care?: No Was dental information given to patient?: Patient has dentist HPI f/u knee pain HPI Details 45 y/o female presents to f/u bilateral knee pain, R worse than L. Had seen pain management 06/14/25. They plan to schedule gel injections for management of osteoarthritis. [facility] Medical History PTSD (post-traumatic stress disorder) OCD (obsessive compulsive disorder) Bipolar 1 disorder Anxiety and depression Herpes genitalis in women Edema Arthritis Surgical History H/O right knee surgery Cholecystotomy with removal of foreign body from gallbladder performed Family History (Updated 06/23/25 @ 14:55 by Katelin Gonzales CMA) Brother Asthma Father High blood pressure High cholesterol Diabetes Mother Diabetes Psychiatric disorder FH: mental illness Social History (Updated 06/23/25 @ 14:56 by Katelin Gonzales [facility]) Housing: Apartment Alcohol intake: never Patient Tobacco Use Status: Never used Tobacco e-Cigarette/Vaping Use: Never Used Second Hand Smoke Exposure: No Use of substances other than those prescribed or required for medical reasons: Yes Substance Use Type: Marijuana Current occupational status: employed Cognitive needs: No Hearing needs: No Vision needs: No Questionnaire Thrive Questionnaire Date Thrive assessed: 04/06/25 I am a: Patient What is your living situation today?: I have a steady place to live Within the past 12 months, did the food you bought not last and you didn't have the money to get more?: Sometimes True Within the past 12 months, did you worry whether your food would run out before you got money to buy more?: Sometimes True Do you have trouble paying for medicines?: No Do you have trouble getting transportation to medical appointments?: No Do you have trouble paying your heating and electricity bill?: No Do you have trouble taking care of your child, family member or friend?: No Do you have trouble with day-to-day activities such as bathing, preparing meals, shopping, managing finances, etc.?: Yes Are you currently unemployed and looking for a job?: I choose not to answer this question Are you interested in more education?: No THRIVE Score: 2 AGUSTIN-7 AMB Questionnaire AGUSTIN-7 Date AGUSTIN - 7 assessed: 04/06/25 Source: Developed by Drs. Nico Nichols, Jewels Chaparro, Gibran Poon and colleagues, with an educational subha from [employer]. Review of Systems Const Denies chills, Denies fatigue, Denies fever(s), Denies headache(s) and Denies weakness ENT Denies dizziness and Denies headache(s) Card Denies dyspnea Resp Denies cough, Denies dyspnea, Denies wheezing and Denies other (shortness of breath) Musc Denies numbness and Denies tingling Neuro Denies dizziness, Denies headache(s), Denies numbness, Denies tingling and Denies weakness Psych Denies anxiety and Denies depression Endo Denies fatigue Aller/Immun Denies wheezing Physical exam (Primary Care) Vital Signs: Last Vital Signs Temp 98.2 F 06/23/25 14:56 Pulse 70 06/23/25 14:56 Resp 15 06/23/25 14:56 BP 108/58 L 06/23/25 14:56 Pulse Ox 100 06/23/25 14:56 Oxygen Delivery Method Room Air 06/23/25 14:56 BMI result Body Mass Index 25.0 Tobacco/Smoking Status: Tobacco use Status Tobacco use date assessed 06/23/25 06/23/25 14:59 Patient Tobacco Use Status Never used Tobacco 06/23/25 14:56 e-Cigarette/Vaping Use Never Used 06/23/25 14:56 Thrive Assessment: Date of Thrive Assessment Date Thrive assessed 04/06/25 06/23/25 14:54 Const General: well developed; No acute distress Nutritional Appearance: well nourished Orientation/consciousness: patient oriented x3 HENMT Head: Yes normocephalic and Yes atraumatic Eyes General: appearance normal, both eyes and all related structures Pupils: Equal, round and reactive pupils present EOM: EOMs intact bilaterally Resp Effort & Inspection: normal respiratory effort Neuro General: patient oriented x3 and gait normal Cranial nerves: Yes Equal, round and reactive pupils present Psych Affect: normal affect Coding Level of Care Code Est Pt Level 3 (20542) Diagnoses Bilateral knee pain M25.561; M25.562 Chronic pain G89.29 Immunization counseling Z71.85 Assessment & Plan Assessment & Plan (1) Bilateral knee pain: Code(s): M25.561 - Pain in right knee; M25.562 - Pain in left knee Category: Medical (2) Chronic pain: Code(s): G89.29 - Other chronic pain Category: Medical (3) Immunization counseling: Code(s): Z71.85 - Encounter for immunization safety counseling Category: Medical Plan 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 History of surgeries with subsequent removal hardware She will continue using meloxicam and will give her a script for oxycodone 2.5 mg b.i.d. She is now followed by pain management and has an appointment with Ortho as well Follow-up with specialists as recommended Completed handicap fred Will give her a script for a cane Pain management contract signed Urine drug screen ordered Due for flu shot which is provided today. Orders: Orders Influenza [id number] Immunization Today Z23 - Encounter for immunization Drug Screen Urine Today G89.29 - Other chronic pain Medications: New Fluarix [id number] (PF) (flu vac ts 2024-(6mos up)-PF) 0.5 mL IM ONCE 0.5 mL 0RF NS Z23 - Encounter for immunization cane As directed 1 ea 0RF M11.869 - Other specified crystal arthropathies, unspecified knee, M17.0 - Bilateral primary osteoarthritis of knee cane As directed 1 ea 0RF M11.869 - Other specified crystal arthropathies, unspecified knee, M17.0 - Bilateral primary osteoarthritis of knee oxycodone Masspat Verified. Partial Fill upon patient request. 2.5 mg (1/2 x 5 mg) PO BID PRN 30 tabs 0RF pain 30 days G89.29 - Other chronic pain, M11.869 - Other specified crystal arthropathies, unspecified knee Changed From semaglutide (Ozempic) 0.25 mg (0.368 mL) subcut QWEEK 28 days 1.472 mL 2RF To semaglutide (Ozempic) 0.5 mg (0.736 mL) subcut QWEEK 2.944 mL 2RF 28 days Refilled meloxicam 15 mg PO DAILY 30 tabs 2RF 30 days M25.569 - Pain in unspecified knee
[2025-06-23 14:56] VITALS: BP 108/58; PULSE 70; RESP 15; TEMP 36.8; O2SAT 100; BMI 25.0
== END 2025-06-23 15:57 | disposition home or self-care (01) ==
LOC: HO.HMCFM 14:32
PROVIDERS: PCP Family Medicine; Visit Provider Family Medicine
DX: M25.561 Pain in right knee (principal); M25.562 Pain in left knee; G89.29 Other chronic pain; Z71.85 Encounter for immunization safety counseling; Z23 Encounter for immunization

== ENCOUNTER 2025-07-26 14:25 | Outpatient (AMB) | payer OTHER, SELFPAY ==
--- NOTE | 2025-07-26 14:34 | A.OFFPC_ITS ---
Vital Signs 07/26/25 14:36 Height 5 ft 8 in Weight 158 lb BMI 24.0 BP 100/70 Blood Pressure Location Lt brachial Position Sitting Respiration 16 Pulse 96 Pulse Source Pulse Oximeter Temp 98.1 F Temp Source Oral Pulse Oximetry (%) 96 Oxygen Delivery Method Room Air Intake Visit Reasons: f/u knee pain Intake Note: patient is here to follow up on bilateral knee pain. Harvest Worker Required: No Allergies methadone Allergy (Intermediate, Verified 07/26/25 14:34) Vomiting Medication List - Last Reconciled 07/26/25 by Juan Luis Marte MD alprazolam (Xanax) 1 mg PO ONCE PRN buspirone 15 mg PO TID cane As directed cariprazine (Vraylar) 3 mg PO DAILY levonorgestrel (Mirena) intrauterine meloxicam 15 mg PO DAILY 30 days oxycodone 2.5 mg (1/2 x 5 mg) PO BID PRN 30 days semaglutide (Ozempic) 0.5 mg (0.736 mL) subcut QWEEK 28 days sumatriptan succinate 50 mg PO Q2-4H PRN 30 days valacyclovir 500 mg PO DAILY 90 days Tobacco use date assessed: 06/23/25 Dental Screening Dental Screen Date: 06/23/25 HPI f/u knee pain HPI Details 45 y/o female presents to f/u knee pain. She continues using meloxicam, oxycodone for pain control. She has an appt. with pain management, orthopedic for her knees. Has complaints of bacterial vaginosis. [facility] Medical History PTSD (post-traumatic stress disorder) OCD (obsessive compulsive disorder) Bipolar 1 disorder Anxiety and depression Herpes genitalis in women Edema Arthritis Surgical History H/O right knee surgery Cholecystotomy with removal of foreign body from gallbladder performed Family History (Updated 06/23/25 @ 14:55 by Katelin Gonzales CMA) Brother Asthma Father High blood pressure High cholesterol Diabetes Mother Diabetes Psychiatric disorder FH: mental illness Social History (Updated 06/23/25 @ 14:56 by Katelin Gonzales CMA) Housing: Apartment Alcohol intake: never Patient Tobacco Use Status: Never used Tobacco e-Cigarette/Vaping Use: Never Used Second Hand Smoke Exposure: No Substance Use Type: Marijuana Current occupational status: employed Cognitive needs: No Hearing needs: No Vision needs: No Questionnaire Thrive Questionnaire Date Thrive assessed: 04/06/25 I am a: Patient What is your living situation today?: I have a steady place to live Within the past 12 months, did the food you bought not last and you didn't have the money to get more?: Sometimes True Within the past 12 months, did you worry whether your food would run out before you got money to buy more?: Sometimes True Do you have trouble paying for medicines?: No Do you have trouble getting transportation to medical appointments?: No Do you have trouble paying your heating and electricity bill?: No Do you have trouble taking care of your child, family member or friend?: No Do you have trouble with day-to-day activities such as bathing, preparing meals, shopping, managing finances, etc.?: Yes Are you currently unemployed and looking for a job?: I choose not to answer this question Are you interested in more education?: No THRIVE Score: 2 AUDIT C Alcohol Use Questionnaire (AUDIT-C) 2. How many drinks containing alcohol do you have on a typical day when you are drinking?: 1 or 2 Total Score: 0 AGUSTIN-7 AMB Questionnaire AGUSTIN-7 Date AGUSTIN - 7 assessed: 04/06/25 Source: Developed by Drs. Nico Nichols, Jewels Chaparro, Gibran Poon and colleagues, with an educational subha from [employer]. Review of Systems Const Denies chills, Denies fatigue, Denies fever(s), Denies headache(s) and Denies weakness ENT Denies dizziness and Denies headache(s) Card Denies dyspnea Resp Denies cough, Denies dyspnea, Denies wheezing and Denies other (shortness of breath) Musc Denies numbness and Denies tingling Neuro Denies dizziness, Denies headache(s), Denies numbness, Denies tingling and Denies weakness Psych Denies anxiety and Denies depression Endo Denies fatigue Aller/Immun Denies wheezing Physical exam (Primary Care) Vital Signs: Last Vital Signs Temp 98.1 F 07/26/25 14:36 Pulse 96 07/26/25 14:36 Resp 16 07/26/25 14:36 BP 100/70 07/26/25 14:36 Pulse Ox 96 07/26/25 14:36 Oxygen Delivery Method Room Air 07/26/25 14:36 BMI result Body Mass Index 24.0 Tobacco/Smoking Status: Tobacco use Status Tobacco use date assessed 06/23/25 07/26/25 14:39 Patient Tobacco Use Status Never used Tobacco 07/26/25 14:39 e-Cigarette/Vaping Use Never Used 07/26/25 14:39 Thrive Assessment: Date of Thrive Assessment Date Thrive assessed 04/06/25 07/26/25 14:39 Const General: well developed; No acute distress Nutritional Appearance: well nourished Orientation/consciousness: patient oriented x3 HENMT Head: Yes normocephalic and Yes atraumatic Eyes General: appearance normal, both eyes and all related structures Pupils: Equal, round and reactive pupils present EOM: EOMs intact bilaterally Resp Effort & Inspection: normal respiratory effort Auscultation: clear to auscultation bilaterally Cardio Rate: regular rate Rhythm: regular rhythm Heart sounds: S1 normal heart sound present, S2 normal heart sound present, no gallops, no murmurs and no rubs Neuro General: patient oriented x3 and gait normal Cranial nerves: Yes Equal, round and reactive pupils present Psych Affect: normal affect Coding Level of Care Code Est Pt Level 4 (31095) Diagnoses Bilateral knee pain M25.561; M25.562 Bacterial vaginosis N76.0; B96.89 Chronic pain G89.29 Herpes genitalis A60.00 Assessment & Plan Assessment & Plan (1) Bilateral knee pain: Code(s): M25.561 - Pain in right knee; M25.562 - Pain in left knee Category: Medical (2) Bacterial vaginosis: Code(s): N76.0 - Acute vaginitis; B96.89 - Other specified bacterial agents as the cause of diseases classified elsewhere Category: Medical (3) Chronic pain: Code(s): G89.29 - Other chronic pain Category: Medical (4) Herpes genitalis: Code(s): A60.00 - Herpesviral infection of urogenital system, unspecified Category: Medical Plan Ongoing bilateral knee pain Fairly well controlled with oxycodone and meloxicam. She is also using her cane today. She has upcoming appointment for consideration of Synvisc injections UDS at prior visit was appropriate. Continue current medications Follow-up with specialists Patient has an upcoming appointment with her machine tool builder Will give her a script for a metronidazole She can also use boric acid tablets There is some evidence that treating partners improves outcomes. Discuss with machine tool builder Patient had been taking valacyclovir daily for suppression Will resume daily suppression regimen. Medications: New metronidazole 500 mg PO BID 14 tabs 1RF 7 days Changed From valacyclovir 500 mg PO Q12H 14 days 28 tabs 3RF To valacyclovir 500 mg PO DAILY 90 tabs 3RF 90 days Refilled oxycodone Masspat Verified. Partial Fill upon patient request. 2.5 mg (1/2 x 5 mg) PO BID PRN 30 tabs 0RF pain 30 days G89.29 - Other chronic pain, M11.869 - Other specified crystal arthropathies, unspecified knee
[2025-07-26 14:36] VITALS: BP 100/70; PULSE 96; RESP 16; TEMP 36.7; O2SAT 96; BMI 24.0
--- OUTSIDE RECORDS SUMMARY | 2025-07-26 19:32 | XMS_ITS | Data Portability ---
Author Organization [facility], Main Office Address [address] [facility] [address] [place] [id number] Assessment No assessment recorded. Plan of Treatment [...] contr ast No observ ation record ed. [email or web address] [facility] [address] [facility] [address], [place], [id number], 09/04/2023 10:16:02 Result Notes None recorded. Medical [...] Diagnosis SNOMED-CT Code Diagnosis ICD10 Code Diagnosis IMO Codes Diagnosis Note [id number] Phyllis Lara MD [place] [address] [place] [address],[facility] [address] [place] [phone] 09/03/2023 13:56:26 09/03/2023 15:02:34 Pain of bilateral knee joints [id number] M25.561 M25.562 Need records of surgeries and Ortho notes (Dr. Wilson[facility].Ur ine drug testing is ordered [...] 1 [employer] (MEDICARE REPLACEMENT/ ADVANTAGE - HMO) [id number] Araceli Christopher [id number] Araceli Christopher 08/25/2023 1 [employer] (MEDICARE REPLACEMENT/ ADVANTAGE - PPO) [id number] Shequela Christopher [id number] Shetucker Christopher Notes Date Note Type Note Provider Name and Address Organization Details Recorded Time 09/03/2023 text/html Appointment Date: September 03, 2023 This is a 43 [...] Ray and Dr. Engel. Was discharged from [facility] for arguing with front end web developer. Phyllis Lara MD [address] [facility],[address], [place], [phone], - [facility] 09/03/2023 15:10:42 OBGyn Episode No OBEpisode recorded.
== END 2025-07-26 14:54 | disposition home or self-care (01) ==
LOC: HO.HMCFM 14:26
PROVIDERS: PCP Family Medicine; Visit Provider Family Medicine
DX: M25.561 Pain in right knee (principal); M25.562 Pain in left knee; N76.0 Acute vaginitis; B96.89 Other specified bacterial agents as the cause of diseases classified elsewhere; G89.29 Other chronic pain; A60.00 Herpesviral infection of urogenital system, unspecified

== ENCOUNTER 2025-08-01 13:25 | Outpatient (AMB) | payer OTHER, SELFPAY ==
--- OUTSIDE RECORDS SUMMARY | 2020-02-16 11:35 | XMS_ITS | Continuity of Care Document ---
Author Organization [facility] Address [address] [facility] [address] [facility], [address] [place] [address] Phone Care Team Providers Care Pipeliner Name Role Phone Dhruv Meehan MD Unavailable [...] days at bedtime 100 MG - Active triamcinolone acetonide 0.1 % topical cream apply by topical route 2 times every day a thin layer to the affected area(s) 0.00 - Active nystatin 100,000 unit/gram topical cream [...] Location Reason(s) For Visit Diagnoses Date Provider [facility], [facility] [address], [address] [place], [id number], [place] tel:[phone] 64 [facility] No Information 0 Zoran Bartlett. [address] [place] [address], Adan Barba MD, [id number] , [place]. tel: [phone] [facility], [facility] [address], [address] [place], [id number], [place] tel:[phone] 64 [facility] No Information 0 Zoran Bartlett. [address] [place], [place] [address] [place], [place], [id number] , [place]. tel: [phone] [facility], [address], [address] [place], [id number], [place] tel:[phone] 64 [facility] No Information 0 Zoran Bartlett. [address] [place] [address], Adan Barba MD, [id number] , [place]. tel: [phone] [facility], [address], [address], [place], [id number], [place] tel:[phone] 64 [place] No Information 9 Meehan Dhruv. [address] [place] [address], [address], Adan Davalos MD, [id number] , [place]. tel: [phone] OFFICE/OUTPAT IENT VISIT, EST [facility], [address], [address], [place], [id number], [place] tel:[phone] 64 [place] Partner feels IUD string (chief complaint)S potting (chief complaint) IUD check upIntermenstrual spotting due to intrauterine device (IUD), initial encounterOvulation bleeding 9 Zoran Bartlett. [address] [place] [address], [address], Adan Davalos MD, [id number] , [place]. tel: [phone] [facility], [address], [address], [place], [id number], [place] tel:[phone] 64 Adan Davalos No Information Eris Magdaleno. [address] [facility], [address], Adan Davalos MD, [id number] , [place]. tel: [phone] [facility], [address], [address], [place], [id number], [place] tel:[phone] 64 Adan [place]alos No Information 9 Eris Magdaleno. [address] [facility], [address], Adan Davalos MD, [id number] , [place]. tel: [phone] OFFICE/OUTPAT IENT VISIT, EST [facility], [address], [address], [place], [id number], [place] tel:[phone] [place] vaginal irritation (chief complaint)* vaginal discharge (chief complaint) VaginitisEncntr for health information internship exam (general) (routine) w/o abn findings 9 Brianna Barakat. [address] [facility], [address], Adan Davalos MD, [id number] , [place]. tel: [phone] OFFICE/OUTPAT IENT VISIT, [facility], [address] [place], [address], [place], [id number], [place] tel:[phone] 64 [place] *vaginal discharge (chief complaint) Vaginitis 9 [place]. [address] [facility], [address], Adan Davalos MD, [id number] , [place]. tel: [phone] OFFICE/OUTPAT IENT VISIT, [facility], [address], [place], [id number], [place] tel:[phone] 64 Adan Davalos *UTI (chief complaint) Urinary urgencyVaginal discharge 8 [place]. [address] [place] [address], [address], Adan Davalos MD, [id number] , [place]. tel: [phone] OFFICE/OUTPAT IENT VISIT, [facility], [address], [address], [place], [id number], [place] tel:[phone] 64 Adan [place]al[place] *UTI (chief complaint) Urinary urgency 8 [place]. [address] [facility], [address], Adan Davalos MD, [id number] , [place]. tel: [phone] OFFICE/OUTPAT IENT VISIT, [facility], [address], [address], [place], [id number], [place] tel:[phone] 64 Adan Davalos Pt. c/o white discharge (chief complaint) Vaginitis 8 Dottie Bull. [address] [place] [address], [address], Adan Davalos MD, [id number] , [place]. tel: [phone] PREV VISIT, [facility], AGE 18-39 [facility], [address], [address], [place], [id number], [place] tel:[phone] 64 Adan Davalos Annual Exam (chief complaint)* STI Screening (chief complaint)* vaginal discharge (chief complaint)v aginal odor (chief complaint) Encntr for health information internship exam (general) (routine) w/o abn findingsVaginitisEncounter for routine checking of intrauterine contraceptive device (IUD)Screening for STD (sexually transmitted disease) 7 [place]. [address] [facility], [address], Adan Davalos MD, [id number] , [place]. tel: [phone] [facility], [address], [address], [place], [id number], [place] tel:[phone] 64 [facility] No Information 7 [place]. [address] [facility], [address], Adan Davalos MD, [id number] , [place]. tel: [phone] [facility], [address], [address], [place], [id number], [place] tel:[phone] 64 [facility] No Information 1 Eris Magdaleno. [address] [facility], [address], Adan Davalos MD, [id number] , [place]. tel: [phone] Family History Family Member Type Diagnosis Age At Onset close relative Problem (finding) Diabetes mellitus close relative Problem (finding) hypertension Payers Payer name Insurance type Covered democrat ID Authoriza tion(s) Medicare DC MB [id number] Social History Type Description Quantity Date Captured [...] notes a mild odor, but no itching. vaginal odor *vaginal discharge *STI Screening Annual Exam : 1. Wilda ty: : [...] with minimal relief. She requests STD testing.. Instructions Date Instruction Additional Infor mation We discussed urge in continence. She will try the generic Detrol LA. Related to Urinary urgency She will try Rephres h gel, while we await culture results. Related to Vaginitis We discussed trying Rephresh gel for the odor. Related to Vaginitis Assessments Type Assessment Date No Information
--- NOTE | 2025-08-01 13:28 | A.OFFVIS_ITS ---
Vital Signs 08/01/25 13:29 Height 5 ft 8 in Weight 166 lb BMI 25.2 BP 116/66 Blood Pressure Location Lt brachial Position Sitting Respiration 16 Pulse 86 Pulse Source Pulse Oximeter Pulse Oximetry (%) 100 Oxygen Delivery Method Room Air Intake Visit Reasons: Right Knee Synvisc One Injection Senior Wind Energy Consultant Required: No Hvac Service Technician: Hvac Service Technician Present Accompanied by: Demetrio Herrera Allergies methadone Allergy (Intermediate, Verified 08/01/25 13:31) Vomiting Medication List - Last Reconciled 08/01/25 by Isamar Feldman LPN alprazolam (Xanax) 1 mg PO ONCE PRN buspirone 15 mg PO TID cane As directed cariprazine (Vraylar) 3 mg PO DAILY levonorgestrel (Mirena) intrauterine meloxicam 15 mg PO DAILY 30 days metronidazole 500 mg PO BID 7 days oxycodone 2.5 mg (1/2 x 5 mg) PO BID PRN 30 days semaglutide (Ozempic) 0.5 mg (0.736 mL) subcut QWEEK 28 days sumatriptan succinate 50 mg PO Q2-4H PRN 30 days valacyclovir 500 mg PO DAILY 90 days HPI HPI Right Knee Synvisc One Injection: Details: Patient presents for scheduled procedure. Denies any recent cough, cold, infection, fever or other significant changes in medical history since last office visit. [facility] Medical History PTSD (post-traumatic stress disorder) OCD (obsessive compulsive disorder) Bipolar 1 disorder Anxiety and depression Herpes genitalis in women Edema Arthritis Surgical History H/O right knee surgery Cholecystotomy with removal of foreign body from gallbladder performed Family History (Updated 06/23/25 @ 14:55 by Katelin Gonzales CMA) Brother Asthma Father High blood pressure High cholesterol Diabetes Mother Diabetes Psychiatric disorder FH: mental illness Social History (Updated 06/23/25 @ 14:56 by Katelin Gonzales CMA) Housing: Apartment Alcohol intake: never Patient Tobacco Use Status: Never used Tobacco e-Cigarette/Vaping Use: Never Used Second Hand Smoke Exposure: No Substance Use Type: Marijuana Current occupational status: employed Cognitive needs: No Hearing needs: No Vision needs: No Physical Exam Vital Signs: Last Vital Signs Pulse 86 08/01/25 13:29 Resp 16 08/01/25 13:29 BP 116/66 08/01/25 13:29 Pulse Ox 100 08/01/25 13:29 Oxygen Delivery Method Room Air 08/01/25 13:29 BMI result Body Mass Index 25.2 Office Procedures AMB Joint Injection/Aspiration Joint Injection/Aspiration Primary Site: right knee Prep: site was prepped using sterile technique and injection warnings given Injected: in the joint Approach Used: other (Suprapatellar US guided) Procedure: The patient tolerated the procedure well Coding Details: Image saved - Glenohumeral with ultrasound guidance Procedure code (CPT) selection complete Office Meds Synvisc-One 48 mg/6 mL intra-articular syringe Performing Provider: Crescencio Sandoval MD Performing Location: [facility] Administered by: Crescencio Sandoval MD on 08/01/25 13:56 Dose Route Admin Location Dispensed Lot Number Expiration Date [facility] Automatic Lump Making Machine Tender 48 mg intra-articular 6 mL [id number] 01/05/28 Total Dispensed Waste 6 mL 0 % Assessment & Plan Assessment & Plan (1) Osteoarthritis of knees, bilateral: Code(s): M17.0 - Bilateral primary osteoarthritis of knee Category: Medical Plan Patient is status post right knee intra-articular Synvisc-One injection through the suprapatellar ultrasound-guided approach. Patient tolerated procedure well and was discharged home in stable condition with discharge instructions. All questions were answered. We will follow-up via telephone or in clinic to assess response to therapy. A follow-up appointment was made during today's visit. Orders: Orders AMB Hyaluronic Injection 08/01/25 M17.0 - Bilateral primary osteoarthritis of knee Coding Level of Care Code Procedure Only Diagnoses Osteoarthritis of knees, bilateral M17.0 CPT Codes Coding - Joint 8: - Glenohumeral with ultrasound guidance ([id number])
[2025-08-01 13:29] VITALS: BP 116/66; PULSE 86; RESP 16; O2SAT 100; BMI 25.2
== END 2025-08-01 13:52 | disposition home or self-care (01) ==
PROVIDERS: PCP Family Medicine; Visit Provider Internal Medicine
DX: M17.0 Bilateral primary osteoarthritis of knee (principal)
CPT/HCPCS: 20611

== ENCOUNTER → 2025-08-01 13:25 | Outpatient (BNVA) | payer MEDICARE, SELFPAY | PROVIDERS: PCP Family Medicine; Visit Provider Internal Medicine | DX: M17.11 Unilateral primary osteoarthritis, right knee (principal) | CPT/HCPCS: 20611; J7325 ==